=== PATIENT | male | born 1980 | race Caucasian/White ===

== ENCOUNTER 2019-10-03 08:10 | Emergency (ER) | payer BC, OTHER ==
[~2019-10-03] VITALS: Ht 173 cm; Wt 91.0 kg
--- NOTE | 2019-10-03 08:42 | ED Lower Extremity ---
General Chief Complaint: Lower Extremity Stated Complaint: R FOOT INJ Nursing Triage Note: PT STATES HE WAS WORKING ON HIS GARAGE ROOF YESTERDAY AND SLIPPED SO HE JUMPED OFF THE ROOF, ABOUT 8-9 FEET, LANDING WITH HIS RT FOOT ON A 4X4 BOARD CAUSING HYPERFLEXION OF THE RT FOOT. LIMPING WITH ONE CRUTCH ON ARRIVAL, THE CRUTCH IS TOO SHORT FOR THE PT. Nursing Sepsis Screen: No Definite Risk Source: patient Exam Limitations: no limitations (MACHO MOLINA,DIANE STUDENT) History of Present Illness Date Seen by Provider: Oct 03, 2019 Time Seen by Provider: 08:14 Initial Comments Mr. Parra is a 39 year old male who presents to the emergency department this morning with complaints of right foot pain. Yesterday morning (10/03/19) around 10:30 patient states he was working on his roof when he lost his balance and fell/jumped off the roof, about 9 ft. He landed on his feet and his right toes landed on a 4x4 causing his right foot to hyperflex. Mr. Parra has tried advil, ice, and icy hot to help alleviate his pain with moderate relief. He states the pain is improved from yesterday and minimal at rest but is a 10/10 pain with flexion of his foot or weight bearing. He has been ambulating with a single crutch since the injury. The location of the pain is the mid proximal anterior right foot/ankle. He denies hitting his head or any other injuries with the fall. He was wearing steel toe boots at the time. Onset: yesterday Pain/Injury Location: right foot, right ankle Method of Injury: fell Modifying Factors: Improves With Cold Therapy; Worse With Movement; Improves With Rest (MACHO MOLINA,DIANE STUDENT) Allergies and Home Medications Home Medications Hydrocodone/Acetaminophen 1 Each Tablet, 1 EACH PO Q4H PRN for PAIN-MODERATE (5- 7) Prescribed by: DEEDEE GILLESPIE on 10/03/19 0998 Patient Home Medication List Home Medication List Reviewed: Yes (MACHO MOLINA,DIANE STUDENT) Review of Systems Constitutional: no symptoms reported EENTM: see HPI Respiratory: no symptoms reported Cardiovascular: no symptoms reported Gastrointestinal: no symptoms reported Genitourinary: no symptoms reported Musculoskeletal: other (right foot/ankle pain and swelling) Psychiatric/Neurological: No Symptoms Reported (MACHO MOLINADIANE STUDENT) Past Lkcpqkz-Bxgyee-Xmmfce Hx Patient Social History Alcohol Use: Occasionally Uses Alcohol Beverage of Choice: Beer Recreational Drug Use: No Smoking Status: Never a Smoker 2nd Hand Smoke Exposure: No Recent Foreign Travel: No Contact w/Someone Who Travel: No Recent Infectious Disease Expo: No Recent Hopitalizations: No Physical Abuse: No Sexual Abuse: No Mistreated: No Fear: No (MACHO MOLINA MED STUDENT) Seasonal Allergies Seasonal Allergies: No (MACHO MOLINA MED STUDENT) Past Medical History Surgeries: No Respiratory: No Cardiac: No Neurological: No Genitourinary: No Gastrointestinal: No Musculoskeletal: No Endocrine: No Cancer: No Psychosocial: No Integumentary: No (MACHO MOLINA MED STUDENT) Physical Exam Vital Signs Vital Signs - First Documented 10/03/19 08:16 Temp 36.6 Pulse 79 Resp 18 B/P (MAP) 136/88 (104) Pulse Ox 98 O2 Delivery Room Air (DEEDEE PLATA MD) Vital Signs Capillary Refill : Less Than 3 Seconds (MACHO MOLINA MED STUDENT) Height, Weight, BMI Height: '" Weight: lbs. oz. kg; 30.00 BMI Method: General Appearance: WD/WN, no apparent distress Cardiovascular: normal peripheral pulses (at bilateral dorsal pedis), regular rate, rhythm, no murmur Respiratory: chest non-tender, lungs clear, normal breath sounds, no respiratory distress, no accessory muscle use Feet: right foot non-tender, right foot limited range of motion (with ankle flexion), right foot pain (with movement ), right foot swelling (moderate over lateral proximal foot) Neurologic/Tendon: normal sensation, normal tendon functions Neurologic/Psychiatric: alert, normal mood/affect, oriented x 3 Skin: normal color, warm/dry (MACHO MOLINA,DIANE STUDENT) Progress/Results/Core Measures Results/Orders My Orders Orders - DEEDEE PLATA MD Foot, Right, 3 View (10/03/19 08:36) Ankle, Right, 3 Views (10/03/19 08:36) (DEEDEE PLATA MD) Vital Signs/I&O 10/03/19 10/03/19 08:16 10:46 Temp 36.6 36.6 Pulse 79 79 Resp 18 18 B/P (MAP) 136/88 (104) 136/88 (104) Pulse Ox 98 98 O2 Delivery Room Air Room Air (DEEDEE PLATA MD) Blood Pressure Mean: 104 Diagnostic Imaging Diagonstic Imaging: Xray Plain Films/CT/US/NM/MRI: other (Right foot) Comments Right foot x-ray viewed by me and report reviewed. See report below: NAME: JAMES PARRA MED REC#: [id number] PT STATUS: DEP ER : 1980 PHYSICIAN: DEEDEE PLATA MD ADMIT DATE: 10/03/19/ER Signed Date of Exam:10/03/19 FOOT, RIGHT, 3 VIEW INDICATION: Fall and right foot pain. TIME OF EXAM: 8:54 AM 3 views of the right foot were obtained. Distal tibial fracture is again noted and seen on ankle radiographs. Midfoot is unremarkable. No definite calcaneus fracture is seen. Metatarsals and phalanges are intact. IMPRESSION: Distal tibial fracture. No other fractures are identified. Dictated by: Dictated on workstation # [id number] Dict: 10/03/1912 Trans: 10/03/19 1559 [facility] [id number] Interpreted by: JAZMYNE ERVIN MD Electronically signed by: JAZMYNE ERVIN MD 10/03/19 1559 Diagonstic Imaging: Xray Plain Films/CT/US/NM/MRI: ankle Comments Right ankle x-ray viewed by me and report reviewed. See report below: NAME: JAMES PARRA MED REC#: [id number] PT STATUS: DEP ER : 1980 PHYSICIAN: DEEDEE PLATA MD ADMIT DATE: 10/03/19/ER Signed Date of Exam:10/03/19 ANKLE, RIGHT, 3 VIEWS INDICATION: Right ankle injury with pain. AP, oblique and lateral views of the right ankle are obtained which reveal linear lucencies within the distal metaphysis of the right tibia extending to the level of the joint surface. There is no evidence of joint surface irregularity. No abnormal lytic or sclerotic focus is identified. IMPRESSION: Findings are compatible with nondisplaced distal tibial fracture with probable intra-articular involvement demonstrating no offset. Dictated by: Dictated on workstation # [id number] Dict: 10/03/19 0907 Trans: 10/03/19 1146 [facility] [id number] Interpreted by: JENNIE MCCORMICK MD Electronically signed by: JENNIE MCCORMICK MD 10/03/19 1146 (DEEDEE PLATA MD) Departure Impression Primary Impression: Fracture of tibia Qualified Codes: S82.301A - Unspecified fracture of lower end of right tibia, initial encounter for closed fracture Additional Impression: Fall from roof Qualified Codes: W13.2XXA - Fall from, out of or through roof, initial encounter Disposition: 01 HOME, SELF-CARE Condition: Improved Departure-Patient Inst. Decision time for Depature: 09:42 (DEEDEE PLATA MD) Referrals: DOMINIC ROSENBERG MD, MICHAEL P MD Patient Instructions: Ankle Fracture Add. Discharge Instructions: For mild pain you may take Tylenol (acetaminophen) up to 1000 mg every 6 hours as needed. Avoid using NSAID medications such as ibuprofen, naproxen, Aleve, Advil, etc. For more severe pain you may use hydrocodone as prescribed. Elevation and icing in 20 minute intervals may help with pain and swelling. Keep the boot on unless showering. Do not bear weight on your right foot at any time. Follow-up with an orthopedic provider as soon as possible. Please call today for an appointment. You may wish to check with your insurance regarding preferred providers before scheduling the appointment. Use crutches to walk. Do not attempt to drive or operate machinery with the right foot while in the boot. All discharge instructions reviewed with patient and/or family. Voiced understanding. Scripts Hydrocodone/Acetaminophen (Hydrocodone-Acetamin 5-325 mg) 1 Each Tablet 1 EACH PO Q4H PRN for PAIN-MODERATE (5-7), #20 TAB Prov: DEEDEE PLATA MD 10/03/19 Work/School Note: Work Release Form Date Seen in the Emergency Department: Oct 03, 2019 Return to Work: Oct 03, 2019 Other Restrictions Listed Below: No weightbearing on the right foot until released This patient was interviewed and examined by me personally along with ASHLEY Caro. I agree with ASHLEY history, physical, assessment, and documentation except were otherwise noted. Patient had pain and some tenderness at the anterior ankle joint, especially with dorsiflexion. X-rays revealed a distal tibial fracture. Patient was fitted with a boot and crutches and was instructed to be nonweightbearing. Co ntact information for local orthopedic providers was provided. Exam: Gen.: Alert, oriented, no acute distress Respiratory: No respiratory distress, normal breath sounds Extremities: Right proximal foot is swollen with tenderness in the anterior joint line of the ankle. There is notable pain with axial loading of the lower leg and dorsiflexion of the foot. Capillary refill and sensation intact distally. Skin: Slight ecchymosis of the right foot (DEEDEE PLATA MD) MACHO MOLINA,MED STUDENT Oct 03, 2019 08:42 DEEDEE PLATA MD Oct 03, 2019 09:43
--- NOTE | 2019-10-03 09:09 | Diagnostic Imaging Report ---
INDICATION: Right ankle injury with pain. AP, oblique and lateral views of the right ankle are obtained which reveal linear lucencies within the distal metaphysis of the right tibia extending to the level of the joint surface. There is no evidence of joint surface irregularity. No abnormal lytic or sclerotic focus is identified. IMPRESSION: Findings are compatible with nondisplaced distal tibial fracture with probable intra-articular involvement demonstrating no offset. Dictated by: Dictated on workstation # [id number]
--- NOTE | 2019-10-03 09:17 | Diagnostic Imaging Report ---
INDICATION: Fall and right foot pain. TIME OF EXAM: 8:54 AM 3 views of the right foot were obtained. Distal tibial fracture is again noted and seen on ankle radiographs. Midfoot is unremarkable. No definite calcaneus fracture is seen. Metatarsals and phalanges are intact. IMPRESSION: Distal tibial fracture. No other fractures are identified. Dictated by: Dictated on workstation # [id number]
[2019-10-03] MEDS ORDERED: HYDR-83 PO (09:48)
[2019-10-03 10:46] VITALS: BP 136/88
== END 2019-10-03 10:46 | disposition home or self-care (01) ==
LOC: EDUNIT# 08:10 → ER 08:13
DX: S82.301A Unspecified fracture of lower end of right tibia, initial encounter for closed fracture (principal); W13.2XXA Fall from, out of or through roof, initial encounter
CPT/HCPCS: 73610; 73630; 99283; L2114

== ENCOUNTER 2021-01-06 08:58 | Emergency (ER) | payer BC ==
[~2021-01-06] VITALS: Ht 167 cm; Wt 90.7 kg
[~2021-01-06 08:58] MED LIST: ACHD5005 PO
--- NOTE | 2021-01-06 09:03 | ED Integumentary General ---
General Stated Complaint: R LEG LAC Source: patient Exam Limitations: no limitations History of Present Illness Date Seen by Provider: Jan 06, 2021 Time Seen by Provider: 09:00 Initial Comments Patient to the ER by private conveyance with chief complaint he had a accidental laceration to his right superior edge of his kneecap with a chainsaw just in the subcutaneous tissue. He was able to apply direct pressure and stop the bleeding. He has not had a tetanus vaccine in the last 5 years. He has no significant medical history Allergies and Home Medications Allergies Coded Allergies: No Known Drug Allergies (Unverified , 01/06/21) Patient Home Medication List Home Medication List Reviewed: Yes Cephalexin (Cephalexin) 500 Mg Tablet, 500 MG PO TID Prescribed by: VIV KEANE on 01/06/21 0926 Hydrocodone/Acetaminophen (Hydrocodone-Acetamin 5-325 mg) 1 Each Tablet, 1 EACH PO Q4H PRN for PAIN-MODERATE (5-7) Prescribed by: DEEDEE GILLESPIE on 10/03/19 0949 Review of Systems Review of Systems Constitutional: No chills, No diaphoresis EENTM: No ear discharge, No ear pain Respiratory: No cough, No short of breath Cardiovascular: No edema, No Hx of Intervention Gastrointestinal: No abdominal pain, No constipation, No diarrhea Genitourinary: No discharge, No dysuria Musculoskeletal: No back pain, No joint pain All Other Systems Reviewed Negative Unless Noted: Yes Past Zkklaab-Ixhxit-Ojgovd Hx Patient Social History Tobacco Use?: No Use of E-Cig and/or Vaping dev: No Substance use?: No Alcohol Use?: No Seasonal Allergies Seasonal Allergies: No Past Medical History Surgeries: No Respiratory: No Cardiac: No Neurological: No Genitourinary: No Gastrointestinal: No Musculoskeletal: No Endocrine: No Cancer: No Psychosocial: No Integumentary: No Physical Exam Vital Signs Vital Signs - First Documented 01/06/21 09:01 Temp 35.6 Pulse 115 Resp 20 B/P (MAP) 171/112 (131) Pulse Ox 98 O2 Delivery Room Air Capillary Refill : General Appearance: WD/WN, no apparent distress HEENT: TMs normal, pharynx normal Neck: full range of motion, normal inspection Cardiovascular: normal peripheral pulses, regular rate, rhythm Respiratory: no respiratory distress, no accessory muscle use Extremities: normal range of motion, normal inspection, normal capillary refill Neurologic/Psychiatric: alert, normal mood/affect, oriented x 3 Skin: other (Right knee 3 cm linear laceration into the subcutaneous fat. Underlying fascia is intact.) Procedures/Interventions Wound Location: Lower Extremities Other Wound Location Right knee Wound Length (cm): 3 Wound's Depth, Shape: linear, sub Q Wound Explored: no foreign body removed Irrigated w/ Saline (ccs): 250 Betadine Prep?: Yes (Chlorhexidine soap and sterile saline) Anesthesia: 1% Lidocaine Volume Anesthetic (ccs): 4 Wound Debrided: minimal Suture: Prolene Suture Size: 4-0 Number of Sutures: 4 Layer Closure?: 1 Sterile Dressing Applied?: Yes Progress Fascia was still intact. No evidence of bone involvement. No foreign debris seen. Thoroughly cleaned the wound infiltrated the edges with lidocaine and closed with single closure x4 stitches. Left some gap so that it could drain out since its contaminated wound. Patient tell the procedure well. Progress/Results/Core Measures Results/Orders My Orders Orders - VIV KEANE Dipht,Pertuss(Acell),Tet Adult (Boostrix (01/06/21 09:14) Dipht,Pertuss(Acell),Tet Adult (Boostrix (01/06/21 09:30) Medications Given in ED Current Medications Medications Dose Ordered Sig/Steven Route Start Time Stop Time Status Last Admin Dose Admin Diphtheria/ Tetanus/Acell Pertussis 0.5 ml ONCE ONCE IM 01/06/21 09:30 01/06/21 09:31 DC 01/06/21 09:19 0.5 ML Vital Signs/I&O 01/06/21 01/06/21 09:01 09:32 Temp 35.6 35.6 Pulse 115 115 Resp 20 20 B/P (MAP) 171/112 (131) 171/112 Pulse Ox 98 98 O2 Delivery Room Air Room Air Progress Progress Note : Time: :21 Progress Note Tdap and sutures Departure Impression Primary Impression: Contact with chainsaw as cause of accidental injury Additional Impression: Laceration of knee, right Qualified Codes: S81.011A - Laceration without foreign body, right knee, initial encounter Disposition: 01 HOME, SELF-CARE Condition: Stable Departure-Patient Inst. Decision time for Depature: 09:24 Referrals: NO,LOCAL PHYSICIAN (PCP/Family) Primary Care Physician Patient Instructions: Laceration Repair With Stitches (DC) Add. Discharge Instructions: Keep the wound clean with regular soap and water. Do not use hydrogen peroxide, alcohol or iodine as this will delay wound healing. Keep a dressing on it especially when in a dirty environment. Change the dressing at least daily or more frequently if it becomes soiled. Oozing should slow down over the next 2 to 3 days. If the stitch comes out or if you are bleeding then elevate your leg and apply direct pressure for at least 20 minutes. Return to ER if you cannot get it stop bleeding. Come back to the ER and 10 to 14 days and we will remove the sutures at no additional charge. If you have redness going up your leg, fever, purulent drainage from the wound or other complications then return to the ER or your doctor sooner. You may apply thin layer of Vaseline or triple antibiotic ointment over the sutures during dressing changes to keep the dressing from sticking to the wound. Keflex 3 times a day for the next 5 days to prevent wound infection. Scripts Cephalexin (Cephalexin) 500 Mg Tablet 500 MG PO TID for 5 Days, #15 TAB 0 Refills Prov: VIV KEANE 01/06/21 VIV KEANE Jan 06, 2021 09:03
[2021-01-06] MEDS ORDERED: TETANUS,DIPTH,PERTUSS P/F (BOOSTRIX) 0.5 ML VIAL IM ONE ×2 (09:14→09:30)
[2021-01-06] MEDS ORDERED: CEPH500T PO (09:26)
[2021-01-06 09:32] VITALS: BP 171/112
== END 2021-01-06 09:32 | disposition home or self-care (01) ==
LOC: EDUNIT# 08:58 → ER 09:00
DX: S81.011A Laceration without foreign body, right knee, initial encounter (principal); Z23 Encounter for immunization; W31.2XXA Contact with powered woodworking and forming machines, initial encounter
CPT/HCPCS: 90715

== ENCOUNTER 2022-06-24 10:35 | Outpatient (RCR) | payer BC ==
[~2022-06-24 10:35] MED LIST changes: +CEPH500T PO
== END 2022-07-04 | disposition home or self-care (01) ==
PROVIDERS: ATTEND Nurse Practitioner Family
DX: M54.2 Cervicalgia (principal); R20.0 Anesthesia of skin; R20.2 Paresthesia of skin

== ENCOUNTER 2022-07-18 13:06 | Outpatient (RCR) | payer BC | END 2022-07-18 13:24 | disposition home or self-care (01) | PROVIDERS: ATTEND Nurse Practitioner Family | DX: M54.2 Cervicalgia (principal); R20.0 Anesthesia of skin; R20.2 Paresthesia of skin ==